=== PATIENT | male | born 1990 | race Two or more races ===

== ENCOUNTER 2018-04-06 10:37 | Emergency (ER) | payer OTHER ==
[~2018-04-06] VITALS: Ht 165.1 cm; Wt 68.0 kg
[~2018-04-06 10:37] MED LIST: BENZ1TAB7; CHOL100046 PO; DEPAKOTE PO; DEPER5 PO; DIPH50CA38; DOCU-138 PO; KEPP500; PALI9TAB3; QUET200T PO; SERT100T
[2018-04-06] MEDS ORDERED: LORAZEPAM 2MG/ML CPJ IM ONE (11:45)
[2018-04-06] MEDS ORDERED: LIDOCAINE 1%/EPI 1:100,000 10 ML VIAL IJ ONE (11:45)
[2018-04-06] MEDS ORDERED: DIPHENHYDRAMINE 50MG/ML VIAL IM ONE (11:45)
[2018-04-06] MEDS ORDERED: TETANUS, DIPHTHERIA, PERTUSSIS VAC/PF 0.5ML (>7YR OLD) IM ONE (11:45)
[2018-04-06] MEDS ORDERED: BACITRACIN ZINC OINT UDPKT TOP ONE (11:45)
[2018-04-06] MEDS ORDERED: HALOPERIDOL LACTATE 5MG/ML VIAL IM ONE (11:45)
[2018-04-06] MEDS ORDERED: LIDOCAINE HCL/EPINEPHRINE 1%-EPI 1:100,000 20 ML VIAL INFIL ONE (13:30)
[2018-04-06 19:00] VITALS: BP 111/68
== END 2018-04-06 19:38 | disposition home or self-care (01) ==
LOC: ER 10:37 → CANBEDREQ 19:41
DX: S01.81XA Laceration without foreign body of other part of head, initial encounter (principal); Z86.59 Personal history of other mental and behavioral disorders; Z79.899 Other long term (current) drug therapy; X58.XXXA Exposure to other specified factors, initial encounter; Y93.89 Activity, other specified; Y92.89 Other specified places as the place of occurrence of the external cause; Y99.8 Other external cause status
CPT/HCPCS: 12002; 70450; 90471; 90715; 96372; 99284; J1200; J1630; J2060; J3490

== ENCOUNTER 2018-04-12 17:44 | Emergency (ER) | payer OTHER ==
[~2018-04-12] VITALS: Ht 157.5 cm; Wt 57.0 kg
[2018-04-12 18:56] VITALS: BP 113/60
== END 2018-04-12 19:11 | disposition home or self-care (01) ==
LOC: ER 17:44
DX: Z48.02 Encounter for removal of sutures (principal)
CPT/HCPCS: 99281